=== PATIENT | female | born 2000 | race Caucasian/White ===

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

== ENCOUNTER 2022-03-12 16:51 | Emergency (ER) | payer OTHER ==
[~2022-03-12 16:51] MED LIST changes: +IBUPROFEN600 MG PO; +ROBAXIN500 M1 PO; +Zofran4 MG PO
[2022-03-12] MEDS ORDERED: AMOXICILLIN500 M2 PO (18:55)
== END 2022-03-12 19:44 | disposition home or self-care (01) ==
LOC: ED 16:51
DX: K02.9 Dental caries, unspecified (principal)

== ENCOUNTER 2022-08-07 04:39 | Emergency (ER) | payer OTHER ==
[~2022-08-07] VITALS: Ht 172.7 cm; Wt 59.0 kg
[~2022-08-07 04:39] MED LIST changes: +AMOXICILLIN500 M2 PO
[2022-08-07] MEDS ORDERED: PENICILLIN VK500 MG PO (04:56)
== END 2022-08-07 04:59 | disposition home or self-care (01) ==
LOC: ED 04:39
DX: K02.9 Dental caries, unspecified (principal)

== ENCOUNTER 2022-12-08 20:46 | Emergency (ER) | payer OTHER ==
[~2022-12-08] VITALS: Ht 172.7 cm; Wt 61.2 kg
[~2022-12-08 20:46] MED LIST changes: +PENICILLIN VK500 MG PO
[2022-12-08 21:22] LABS: BASO # 0.1 10*3/uL (0.0-0.1); BASO % 1.3 % (0.0-1.0); EOS # 0.5 10*3/uL (0.0-0.4); EOS % 6.1 % (1.0-4.0); LYMPH # 2.2 10*3/uL (1.3-4.4); LYMPH % 29.7 % (27.0-41.0); MEAN CELL VOLUME 88.7 fl (81.0-99.0); MEAN CORPUSCULAR HGB 28.7 pg (27.0-31.0); MEAN CORPUSCULAR HGB CONC 32.3 g/dl (33.0-37.0); MEAN PLATELET VOLUME 9.7 fl (9.6-12.3); MONO # 0.7 10*3/uL (0.1-1.0); NEUT # 4.1 10*3/uL (2.3-7.9); NEUT % 53.8 % (47.0-73.0); PLATELET COUNT AUTOMATED 358 10*3/uL (130-400); RED BLOOD COUNT 4.85 10*6/uL (4.10-5.10); RED CELL DISTRI WIDTH 12.7 % (0-14.5); WHITE BLOOD COUNT 7.5 10*3/uL (4.8-10.8)
[2022-12-08 21:40] LABS: ALKALINE PHOSPHATASE 50 U/L (46-116); BUN 9 mg/dl (9-23); CHLORIDE 105 mmol/L (98-107); POTASSIUM 3.7 mmol/L (3.4-5.1); SGPT/ALT 8 U/L (10-49); TOTAL PROTEIN 7.5 gm/dL (6.0-8.0)
[2022-12-08 23:02] LABS: BILIRUBIN Negative (Negative); BLOOD 3+ (Negative); CLARITY Clear (Clear); COLOR Yellow (Yellow); GLUCOSE Negative (Negative); KETONE Negative (Negative); LEUKO ESTERASE 1+ (Negative); NITRITE Negative (Negative); PH 7.5 (4.5-8.0)
[2022-12-08 23:13] LABS: BACTERIA 1+; EPITHELIAL CELLS 31-40; RBC 16-20 rbc/hpf (0-2)
[2022-12-08] MEDS ORDERED: CEPHALEXIN500 M1 PO (23:30)
== END 2022-12-08 23:57 | disposition home or self-care (01) ==
LOC: ED 20:46
PROVIDERS: Nurse Practitioner
DX: N39.0 Urinary tract infection, site not specified (principal); R31.9 Hematuria, unspecified; Z98.890 Other specified postprocedural states; F10.90 Alcohol use, unspecified, uncomplicated

== ENCOUNTER 2022-12-22 01:55 | Emergency (ER) | payer OTHER ==
[~2022-12-22] VITALS: Ht 172.7 cm; Wt 61.2 kg
[~2022-12-22 01:55] MED LIST changes: +CEPHALEXIN500 M1 PO
[2022-12-22] MEDS ORDERED: AMOX-CLAV 875-1 EACH PO (02:11)
[2022-12-22] MEDS ORDERED: NAPROSYN500 MG PO (02:11)
== END 2022-12-22 02:15 | disposition home or self-care (01) ==
LOC: ED 01:55
DX: K04.7 Periapical abscess without sinus (principal); K08.89 Other specified disorders of teeth and supporting structures; Z87.891 Personal history of nicotine dependence

== ENCOUNTER 2023-04-26 07:59 | Emergency (ER) | payer OTHER ==
[~2023-04-26] VITALS: Ht 172.7 cm; Wt 61.7 kg
[~2023-04-26 07:59] MED LIST changes: +AMOX-CLAV 875-1 EACH PO; +NAPROSYN500 MG PO
[2023-04-26] MEDS ORDERED: AMOXICILLIN500 M3 PO (09:13)
[2023-04-26] MEDS ORDERED: HYDROCODONE-AC1 EAC1 PO (09:14)
== END 2023-04-26 09:20 | disposition home or self-care (01) ==
LOC: ED 07:59
DX: S02.5XXA Fracture of tooth (traumatic), initial encounter for closed fracture (principal); K04.7 Periapical abscess without sinus; Z98.890 Other specified postprocedural states; X58.XXXA Exposure to other specified factors, initial encounter; Y93.89 Activity, other specified; Y92.89 Other specified places as the place of occurrence of the external cause; Y99.8 Other external cause status

== ENCOUNTER 2024-01-01 04:39 | Emergency (ER) | payer OTHER ==
[~2024-01-01] VITALS: Ht 172.7 cm; Wt 59.0 kg
[~2024-01-01 04:39] MED LIST changes: +AMOXICILLIN500 M3 PO; +HYDROCODONE-AC1 EAC1 PO
[2024-01-01 06:57] LABS: BASO # 0.1 10*3/uL (0.0-0.1); BASO % 0.7 % (0.0-1.0); EOS # 0.2 10*3/uL (0.0-0.4); EOS % 1.3 % (1.0-4.0); LYMPH # 1.3 10*3/uL (1.3-4.4); LYMPH % 9.5 % (27.0-41.0); MEAN CELL VOLUME 90.7 fl (81.0-99.0); MEAN CORPUSCULAR HGB 29.4 pg (27.0-31.0); MEAN CORPUSCULAR HGB CONC 32.4 g/dl (33.0-37.0); MEAN PLATELET VOLUME 9.5 fl (9.6-12.3); MONO # 0.7 10*3/uL (0.1-1.0); MONO % 4.8 % (3.0-9.0); NEUT # 11.3 10*3/uL (2.3-7.9); NEUT % 83.3 % (47.0-73.0); PLATELET COUNT AUTOMATED 304 10*3/uL (130-400); RED BLOOD COUNT 4.19 10*6/uL (4.10-5.10); RED CELL DISTRI WIDTH 12.5 % (0-14.5); WHITE BLOOD COUNT 13.6 10*3/uL (4.8-10.8)
[2024-01-01] MEDS ORDERED: Ketorolac Tromethamine 30 MG/ML VIAL IV ONE (07:15)
[2024-01-01 07:18] LABS: ALKALINE PHOSPHATASE 42 U/L (46-116); BUN 8 mg/dl (9-23); CHLORIDE 107 mmol/L (98-107); POTASSIUM 3.8 mmol/L (3.4-5.1); TOTAL PROTEIN 6.9 gm/dL (6.0-8.0)
[2024-01-01 07:19] LABS: SGPT/ALT < 7 U/L (5-49)
[2024-01-01] MEDS ORDERED: FLOMAX0.4 MG PO (07:52)
[2024-01-01] MEDS ORDERED: MELOXICAM15 MG PO (07:52)
[2024-01-01] MEDS ORDERED: CIPRO500 MG PO (07:52)
[2024-01-01] MEDS ORDERED: Ketorolac Tromethamine 60 MG/2 ML VIAL IM ONE (07:55)
== END 2024-01-01 08:15 | disposition home or self-care (01) ==
LOC: ED 04:39
PROVIDERS: Emergency Medicine
DX: N20.0 Calculus of kidney (principal); F17.200 Nicotine dependence, unspecified, uncomplicated

== ENCOUNTER 2024-04-03 17:10 | Emergency (ER) | payer OTHER ==
[~2024-04-03] VITALS: Ht 172.7 cm; Wt 65.8 kg
[~2024-04-03 17:10] MED LIST changes: +CIPRO500 MG PO; +FLOMAX0.4 MG PO; +MELOXICAM15 MG PO
[2024-04-03] MEDS ORDERED: AMOX-CLAV 875-1 EACH PO (18:07)
== END 2024-04-03 18:10 | disposition home or self-care (01) ==
LOC: ED 17:10
DX: K04.7 Periapical abscess without sinus (principal); K02.9 Dental caries, unspecified; Z98.890 Other specified postprocedural states; F17.200 Nicotine dependence, unspecified, uncomplicated

== ENCOUNTER 2024-05-11 21:25 | Emergency (ER) | payer OTHER ==
[~2024-05-11] VITALS: Ht 172.7 cm; Wt 61.2 kg
[2024-05-11] MEDS ORDERED: SODIUM CHLORIDE 0.9% 1,000 ML IV ONE (21:45)
[2024-05-11 22:00] LABS: BILIRUBIN Negative (Negative); BLOOD 3+ (Negative); CLARITY Cloudy (Clear); COLOR Yellow (Yellow); GLUCOSE Trace (Negative); KETONE 1+ (Negative); LEUKO ESTERASE Trace (Negative); NITRITE Negative (Negative); PH 6.5 (4.5-8.0); SPECIFIC GRAVITY >= 1.030 (1.001-1.030)
[2024-05-11 22:07] LABS: MUCOUS 1+; RBC 51-100 rbc/hpf (0-2); URINE AMPHETAMINES Positive (1000ng/ml); URINE BARBITURATES Negative (200ng/ml); URINE BENZODIAZEPINES Negative (200ng/ml); URINE CANNABINOIDS (THC) Negative (50ng/ml); URINE COCAINE Negative (300ng/ml); URINE METHADONE Negative (300ng/ml); URINE OPIATES Negative (300ng/ml); URINE PHENCYCLIDINE Negative (25ng/ml)
[2024-05-11 22:08] LABS: BACTERIA TRACE
[2024-05-11 22:17] LABS: BASO # 0.1 10*3/uL (0.0-0.1); BASO % 0.5 % (0.0-1.0); EOS # 0.4 10*3/uL (0.0-0.4); EOS % 3.3 % (1.0-4.0); HEMATOCRIT 40.6 % (37.0-47.0); LYMPH # 2.1 10*3/uL (1.3-4.4); LYMPH % 15.8 % (27.0-41.0); MEAN CELL VOLUME 92.1 fl (81.0-99.0); MEAN CORPUSCULAR HGB 29.7 pg (27.0-31.0); MEAN CORPUSCULAR HGB CONC 32.3 g/dl (33.0-37.0); MEAN PLATELET VOLUME 9.9 fl (9.6-12.3); MONO # 0.9 10*3/uL (0.1-1.0); MONO % 6.8 % (3.0-9.0); NEUT # 9.7 10*3/uL (2.3-7.9); NEUT % 73.3 % (47.0-73.0); PLATELET COUNT AUTOMATED 352 10*3/uL (130-400); RED BLOOD COUNT 4.41 10*6/uL (4.10-5.10); RED CELL DISTRI WIDTH 12.4 % (0-14.5); WHITE BLOOD COUNT 13.2 10*3/uL (4.8-10.8)
[2024-05-11 22:38] LABS: BUN 7 mg/dl (9-23); CHLORIDE 105 mmol/L (98-107); LIPASE 29 U/L (12-53); POTASSIUM 3.3 mmol/L (3.4-5.1)
[2024-05-11] MEDS ORDERED: Ketorolac Tromethamine 15 MG/ML VIAL IV ONE (22:50)
[2024-05-11] MEDS ORDERED: POTASSIUM CHLORIDE 20 MEQ TAB PO ONE (23:00)
[2024-05-11] MEDS ORDERED: Ketorolac Tromethamine 30 MG/ML VIAL IM ONE (23:00)
== END 2024-05-11 23:06 | disposition home or self-care (01) ==
LOC: ED 21:25
PROVIDERS: Internal Medicine
DX: N20.0 Calculus of kidney (principal); R11.2 Nausea with vomiting, unspecified; Z98.890 Other specified postprocedural states

== ENCOUNTER 2024-09-22 08:55 | Emergency (ER) | payer OTHER ==
[~2024-09-22] VITALS: Ht 172.7 cm; Wt 61.2 kg
[~2024-09-22 08:55] MED LIST changes: +Ondansetron4 MG PO; +PERCOCET 5-3251 EACH PO; +SEPTDS PO
[2024-09-22] MEDS ORDERED: SODIUM CHLORIDE 0.9% 1,000 ML IV ONE (09:30)
[2024-09-22] MEDS ORDERED: MORPHINE Sulfate 2 MG/ML SYR IV ONE (09:30)
[2024-09-22] MEDS ORDERED: Ondansetron Hydrochloride 4 MG/2 ML VIAL IV ONE (09:30)
[2024-09-22] MEDS ORDERED: Ketorolac Tromethamine 15 MG/ML VIAL IV ONE (09:30)
[2024-09-22 10:04] LABS: BASO # 0.1 10*3/uL (0.0-0.1); BASO % 0.6 % (0.0-1.0); EOS # 0.2 10*3/uL (0.0-0.4); EOS % 1.1 % (1.0-4.0); HEMATOCRIT 40.4 % (37.0-47.0); LYMPH % 6.2 % (27.0-41.0); MEAN CELL VOLUME 87.1 fl (81.0-99.0); MEAN CORPUSCULAR HGB 28.9 pg (27.0-31.0); MEAN CORPUSCULAR HGB CONC 33.2 g/dl (33.0-37.0); MEAN PLATELET VOLUME 9.7 fl (9.6-12.3); MONO # 0.7 10*3/uL (0.1-1.0); MONO % 4.8 % (3.0-9.0); NEUT # 13.4 10*3/uL (2.3-7.9); NEUT % 87.1 % (47.0-73.0); PLATELET COUNT AUTOMATED 277 10*3/uL (130-400); RED BLOOD COUNT 4.64 10*6/uL (4.10-5.10); RED CELL DISTRI WIDTH 13.7 % (0-14.5); WHITE BLOOD COUNT 15.4 10*3/uL (4.8-10.8)
[2024-09-22 10:10] LABS: BILIRUBIN Negative (Negative); BLOOD Trace-Intact (Negative); CLARITY Cloudy (Clear); COLOR Yellow (Yellow); GLUCOSE Negative (Negative); KETONE Trace (Negative); LEUKO ESTERASE Trace (Negative); NITRITE Negative (Negative); PH 6.5 (4.5-8.0); SPECIFIC GRAVITY >= 1.030 (1.001-1.030)
[2024-09-22 10:23] LABS: RBC 16-20 rbc/hpf (0-2)
[2024-09-22 10:24] LABS: BACTERIA 1+; EPITHELIAL CELLS 16-20; MUCOUS 2+
[2024-09-22 10:35] LABS: BUN 11 mg/dl (9-23); CHLORIDE 105 mmol/L (98-107); POTASSIUM 3.7 mmol/L (3.4-5.1)
[2024-09-22] MEDS ORDERED: Piperacillin Sodium/Tazobact 50 ML IV ONE (10:40)
[2024-09-22] MEDS ORDERED: AMOX-CLAV 875-1 EACH PO (10:56)
== END 2024-09-22 11:06 | disposition home or self-care (01) ==
LOC: ED 08:55
PROVIDERS: Emergency Medicine
DX: N20.0 Calculus of kidney (principal); K04.7 Periapical abscess without sinus; R11.2 Nausea with vomiting, unspecified; Z98.890 Other specified postprocedural states

== ENCOUNTER 2024-11-11 22:50 | Emergency (ER) | payer OTHER ==
[~2024-11-11] VITALS: Ht 172.7 cm; Wt 61.2 kg
[2024-11-11] MEDS ORDERED: Amoxicillin/Clavulanate Pota 875 MG TAB PO ONE (23:20)
== END 2024-11-11 23:35 | disposition home or self-care (01) ==
LOC: ED 22:50
DX: K04.7 Periapical abscess without sinus (principal); K02.9 Dental caries, unspecified; F17.210 Nicotine dependence, cigarettes, uncomplicated; Z98.890 Other specified postprocedural states

== ENCOUNTER 2025-02-11 17:28 | Emergency (ER) | payer OTHER ==
[~2025-02-11] VITALS: Ht 172.7 cm; Wt 61.2 kg
[2025-02-11] MEDS ORDERED: CIPROFLOXACIN H10 ML OPH (18:24)
== END 2025-02-11 18:38 | disposition home or self-care (01) ==
LOC: ED 17:28
DX: S05.02XA Injury of conjunctiva and corneal abrasion without foreign body, left eye, initial encounter (principal); W22.8XXA Striking against or struck by other objects, initial encounter; Y93.K1 Activity, walking an animal; Y92.89 Other specified places as the place of occurrence of the external cause; Y99.8 Other external cause status

== ENCOUNTER 2025-10-25 21:47 | Emergency (ER) | payer OTHER ==
[~2025-10-25] VITALS: Ht 172.7 cm; Wt 68.0 kg
[~2025-10-25 21:47] MED LIST changes: +CIPROFLOXACIN H10 ML OPH; +OMNICEF300 MG PO
[2025-10-25 22:17] LABS: BILIRUBIN Negative (Negative); BLOOD 2+ (Negative); CLARITY Cloudy (Clear); COLOR Yellow (Yellow); KETONE Negative (Negative); LEUKO ESTERASE 3+ (Negative); NITRITE Positive (Negative); PH 6.5 (4.5-8.0); SPECIFIC GRAVITY 1.025 (1.001-1.030); UROBILINOGEN 1.0 E.U./dl (0.0-1.0)
[2025-10-25 22:36] LABS: BACTERIA 4+; EPITHELIAL CELLS 21-30
[2025-10-25 22:37] LABS: RBC 16-20 rbc/hpf (0-2); WBC 41-50 wbc/hpf (0-5)
[2025-10-25] MEDS ORDERED: Ciprofloxacin Hydrochloride 500 MG TAB PO ONE (23:40)
[2025-10-25] MEDS ORDERED: CIPRO500 MG PO (23:42)
== END 2025-10-25 23:54 | disposition home or self-care (01) ==
LOC: ED 21:47
PROVIDERS: Internal Medicine
DX: N20.0 Calculus of kidney (principal); N39.0 Urinary tract infection, site not specified; R10.9 Unspecified abdominal pain

== ENCOUNTER → 2025-10-31 | Outpatient (CLI) | payer OTHER ==
[2025-10-31 11:35] LABS: BASO # 0.1 10*3/uL (0.0-0.1); BASO % 1.5 % (0.0-1.0); EOS # 0.7 10*3/uL (0.0-0.4); EOS % 8.2 % (1.0-4.0); MEAN CELL VOLUME 90.8 fl (81.0-99.0); MEAN CORPUSCULAR HGB 29.0 pg (27.0-31.0); MEAN PLATELET VOLUME 9.1 fl (9.6-12.3); MONO # 0.7 10*3/uL (0.1-1.0); MONO % 8.7 % (3.0-9.0); NEUT # 4.1 10*3/uL (2.3-7.9); NEUT % 49.4 % (47.0-73.0); NUCLEATED RED BLOOD CELL 0.0 % (0.0-0.0); NUCLEATED RED BLOOD CELL 0.0 10*3/uL (0.0-0.0); PLATELET COUNT AUTOMATED 386 10*3/uL (130-400); RED CELL DISTRI WIDTH 12.8 % (0-14.5)
[2025-10-31 11:44] LABS: BILIRUBIN Negative (Negative); BLOOD 2+ (Negative); CLARITY Clear (Clear); COLOR Yellow (Yellow); KETONE Negative (Negative); LEUKO ESTERASE 2+ (Negative); NITRITE Negative (Negative); PH 6.0 (4.5-8.0); SPECIFIC GRAVITY 1.015 (1.001-1.030); UROBILINOGEN 0.2 E.U./dl (0.0-1.0)
[2025-10-31 12:15] LABS: BUN 12 mg/dl (9-23)
[2025-10-31 12:21] LABS: SGPT/ALT < 7 U/L (5-49)
[2025-10-31 12:48] LABS: BACTERIA 3+; EPITHELIAL CELLS 16-20; WBC 51-100 wbc/hpf (0-5)
== END | disposition home or self-care (01) ==
LOC: LAB 10:57
PROVIDERS: ATTEND Nurse Practitioner
DX: N20.0 Calculus of kidney (principal)